=== PATIENT | male | born 1990 ===

== ENCOUNTER 2016-08-20 08:26 | Emergency (ER) | payer OTHER ==
--- NOTE | 2016-08-20 11:06 | DIAGNOSTIC IMAGING REPORT ---
PROCEDURE: ABDOMEN/PELVIS WITH CONTRAST CLINICAL INDICATION: RLQ ABDO PAIN, N/V TECHNIQUE: 100 ml of Isovue 300 were injected intravenously and axial images were obtained of the abdomen and pelvis with sagittal and coronal reformations. COMPARISON: 05/23/2016 FINDINGS: ABDOMEN: Moderate periportal edema and pericholecystic fluid. No free perihepatic fluid. The colon in the hepatic flexure and the transverse colon demonstrates decompression but mild wall thickening. The gastric antrum is decompressed and also demonstrates slight wall thickening. The bowel loops are otherwise normal. Clear lung bases. Normal sized heart. No hiatal hernia. The adrenal glands, kidneys, pancreas and spleen are normal. The abdominal aorta is normal in its course and caliber. No atherosclerosis. There are no suspicious calcifications , retroperitoneal adenopathy or masses. The upper bowel loops, and mesentery are normal. Intact anterior abdominal wall. No free fluid or inflammation. PELVIS: The appendix is surgically absent. The pelvic small bowel loops are normal. amount of stool in the colon and rectum. The prostate gland, seminal vesicles, urinary bladder, and pelvic vessels are normal. No adenopathy, free fluid, or pelvic mass. Intact osseous structures. IMPRESSION: 1. Nonspecific periportal edema and pericholecystic fluid, probably related to mild diffuse inflammation, infection (lymphatic dilatation), or increased fluid status. 2. Mild wall thickening of the proximal and transverse colon and questionably in the gastric antrum. There may be a gastroenteritis/enterocolitis present given other signs of inflammation and trace amount of free pelvic fluid. No focal inflammatory changes. 3. Post appendectomy. 4. Discussed with Dr. Terry in the emergency room. All CT scans at this facility use dose modulation, iterative reconstruction, and/or weight-based dosing when appropriate to reduce radiation dose to as low as reasonably achievable.
--- NOTE | 2016-08-20 11:23 | ED NURSING NOTES ---
Clinical Report - Nurses [facility] [address] [place] [address] 08/20/2016 8:26 Patient: NADIYA ECHEVERRIA TRIAGE Triage time 08:Aug 20 2016. Acuity: LEVEL 3. Chief Complaint: ABDOMINAL PAIN, NAUSEA and VOMITING. --08:37 Jairon Juarez R.N. 08:29 08/20/16. BP: 111/79. HR: 44. RR: 22. O2 saturation: 100% on room air. Temp: 98.3 F (oral). Pain level now: 11/30. --08:37 Jairon Juarez R.N. Weight: 68 kg stated. Height/Length: 64 inches Per Patient. BMI: 25.8. --08:28 Jairon Juarez R.N. Medications None. --08:33 Jairon Juarez R.N. Allergies No Known Drug Allergy. --08:33 Jairon Juarez R.N. History Arrived by EMS. Historian: patient. Onset. (This morning at 0200). ( Pt had an appendectomy 1 year ago and since then has had monthly episodes of severe abdominal pain with nausea and emesis. Pt was seen at [facility] this morning and EMS was called. Pt then brought to [place] ED for further treatment.). He has had nausea, vomiting and abdominal pain. No fever. Last oral intake by patient was dinner yesterday. Treatment GRAPHIC PRODUCTION ARTIST: Medications given- morphine IVP and ondanestron. PAST MEDICAL HX: Immunizations: up-to-date. SOCIAL HX: Light tobacco smoker. Occasional alcohol use. (last drink Wednesday or Wednesday). History of drug use: marijuana. (yesterday). No recent travel. No infectious disease exposure. No known contact with a sick individual. FALL RISK ASSESSMENT: Fall risk assessment completed. No fall risk identified. NUTRITIONAL RISK ASSESSMENT: The nutritional risk assessment revealed no deficiencies. FUNCTIONAL ASSESSMENT: Functional assessment: no impairments noted. LEARNING NEEDS ASSESSMENT: The learning needs assessment revealed no barriers. SKIN INTEGRITY ASSESSMENT: Skin integrity risk assessment completed. No skin integrity risk identified. --08:37 Jairon Juarez R.N. PROBLEMS: R hand spiral fracture (2004). Lap appy. Appendicitis. --08:32 Jairon Juarez R.N. Gastroenteritis. Abdominal Pain. --08:32 Jairon Juarez R.N. Interventions ID band on patient. To treatment room. --08:37 Jairon Juarez R.N. 08:30 08/20/2016 Site #1 started prior to arrival in doctor's office via IV in the right antecubital space with an 22g angiocath. Blood drawn: rainbow set. Labeled in the presence of the patient and sent to the lab. --08:30 Jairon Juarez R.N. PHYSICAL ASSESSMENT To room via stretcher. GENERAL / NEURO / PSYCH: Alert. Oriented X 4. Appears in pain and in distress. RESPIRATORY: Moderate respiratory distress. Breath sounds within normal limits. CVS: No abnormal heart sounds. Capillary refill less than 2 seconds. GI / : The patient has had nausea. Emesis noted. Has vomited once. Abdomen soft. Abdominal tenderness. Guarding present. Bowel sounds within normal limits. EXTREMITIES: No lower extremity edema. SKIN: Skin is warm. Skin is diaphoretic. --08:38 Jairon Juarez R.N. NURSING PROGRESS NOTES The plan of care for this patient has been created. Monitoring of patient in place. Blood samples drawn. Patient gowned. Head of bed elevated. Reassurance given. Two patient identifiers checked. Call light placed in reach. Side rails up x 2. Bed placed in lowest position. Patient ready for evaluation- ED physician notified. ( Pt vomited once upon admission. He was in distress, respirations are deep and rapid upon immediate admission. Pt is now resting quietly, breathing unlabored, vitals stable.). --08:39 Jairon Juarez R.N. 08:57 08/20/2016 Ondansetron (Ondansetron HCl) IVP 4 mg given. via site #1. Allergies verified and confirmed 5 rights. IV patency established. IV site checked: no pain, redness, or swelling. IV flushed thoroughly pre- and post-medication administration. IVP given by RN. --08:57 Jairon Juarez R.N. 08:57 08/20/2016 Started bag #1 1000 mL IV Fluids IV NS (Saline); bolus of 1000 mL over 1 hour(s) via site #1. Allergies verified and confirmed 5 rights. IV patency established. IV site checked: no pain, redness, or swelling. IV flushed thoroughly pre- and post-medication administration. Completed per protocol. --08:57 Jairon Juarez R.N. 09:25 08/20/2016 Morphine IVP 4 mg given. via site #1. Allergies verified, confirmed 5 rights and sedative warning given to the patient. IV patency established. IV site checked: no pain, redness, or swelling. IV flushed thoroughly pre- and post-medication administration. IVP given by RN. --09:26 Jairon Juarez R.N. ( Pt reporting pain 10, ordered Morphine given. Pt resting quietly, vitals stable, wctm.). --09:33 Jairon Juarez R.N. 09:31 08/20/16. BP: 115/75. HR: 45. RR: 20. O2 saturation: 97% on room air. Pain level now: 7. --09:33 Jairon Juarez R.N. 09:36 08/20/2016 Ondansetron IVP Response: no adverse reaction. --09:36 Jairon Juarez R.N. 10:07 08/20/2016 Morphine IVP Response: no adverse reaction pain is improving. Symptoms have improved the patient feels better. --10:07 Jairon Juarez R.N. 10:08 08/20/16. BP: 115/58. HR: 50. RR: 14. O2 saturation: 99% on room air. Vaughan-Paul pain scale: 2/10. --10:08 Jairon Juarez R.N. ( Pt is resting comfortably, fiancee at bedside, VSS, no current needs.). --10:09 Jairon Juarez R.N. 10:16 08/20/2016 IV Fluids IV NS Discontinued: bag #1 infused. Total amount infused: 1000 mL. --10:16 Jairon Juarez R.N. Patient transported to [place] by stretcher with tech. (10:22 Aug 20 2016). --10:22 Jairon Juarez R.N. 10:45 08/20/16. BP: 125/71. HR: 51. RR: 16. O2 saturation: 100% on room air. Pain level now: 11/30. --10:45 Jairon Juarez R.N. 10:47 08/20/2016 Morphine IVP 4 mg given. via site #1. Allergies verified, confirmed 5 rights and sedative warning given to the patient. IV patency established. IV site checked: no pain, redness, or swelling. IV flushed thoroughly pre- and post-medication administration. IVP given by RN. --10:47 Jairon Juarez R.N. Patient returned from CT by stretcher with tech. (0240). ( Pt c/o pain post CT. Ordered Morphine given. Pt resting quietly, vitals stable, fiancee at bedside, no further needs.). --10:54 Jairon Juarez R.N. 11:11 08/20/16. BP: 101/59. HR: 49. RR: 16. O2 saturation: 100% on room air. Vaughan-Paul pain scale: 07/03. --11:12 Jairon Juarez R.N. ( Pt is apparently asleep, resting quietly, no apparent distress.). --11:12 Jairon Juarez R.N. 11:17 08/20/2016 GI COCKTAIL WHITE (Simethicone) PO Oral Suspension 50 mL given. Allergies verified and confirmed 5 rights. --11:17 Jairon Juarez R.N. 11:45 08/20/2016 GI COCKTAIL WHITE PO Response: no adverse reaction symptoms have improved. --11:45 Jairon Juarez R.N. DISPOSITION / DISCHARGE 11:39 08/20/16. BP: 113/71. HR: 55. RR: 16. O2 saturation: 100% on room air. Temp: 98.3 F. Pain level now: 10/31. --11:40 Jairon Juarez R.N. 11:45 08/20/2016 Site #1 removed upon discharge. Bandage applied. --11:45 Jairon Juarez R.N. Condition at departure: improved and stable. No learning barriers present. Discharge instructions provided and reviewed with ward secretary and the patient. Reviewed warnings (Pt not to drive today d/t narcotics given in ED today.). Reviewed medication(s) side effects, precautions, dosing and course information. Prescription(s) given to the patient. Reviewed referral to a primary care physician (Pt given instructions to get a referral to a GI specialist). Work note given. Patient and ward secretary verbalized understanding. Written instructions provided in Yi. The patient was discharged by the physician. He was discharged home and accompanied by ward secretary. He left the Emergency Department ambulatory and via private vehicle. Radiologic Technology Instructor driving. ( Pt dc/d in stable condition, pain and nausea are improved, ambulatory, S/O accompanying Pt.). --11:47 Jairon Juarez R.N. Departure time: 11:47 Aug 20 2016. --11:47 Jairon Juarez R.N. Locked/Released at 08/20/2016 11:48 by Jairon Juarez R.N.
--- NOTE | 2016-08-20 11:23 | ED CLINICAL REPORT ---
Clinical Report - Physicians/Mid Levels [facility] [address] [place] [address] 08/20/2016 8:26 Patient: NADIYA ECHEVERRIA Time Seen: 0900. Arrived- By ambulance. Historian- patient. HISTORY OF PRESENT ILLNESS Chief Complaint: ABDOMINAL PAIN. This started this morning and is still present (staying the same). It was abrupt in onset and has been constant but is not gone now. At its maximum, severity described as severe. When seen in the E.D., severity described as severe. Modifying factors- (does not know what makes it better or worse). It is described as sharp and cramping. No radiation. It is described as located in the right lower quadrant. The patient has had nausea, loss of appetite and vomiting. No diarrhea. No additional abdominal pain. No recent travel. Similar symptoms previously: Many times. Recent medical care: Not recently seen/assessed. REVIEW OF SYSTEMS No constipation, black stools, hematemesis, difficulty with urination or pain with urination. No bloody stools or skin rash. All systems otherwise negative, except as recorded above. PAST HISTORY See nurses notes. Medications: None. Allergies: No Known Drug Allergy. SOCIAL HISTORY Smoker- current status unknown. Alcohol use. History of drug use: marijuana. No recent travel. Is a local resident. FAMILY HISTORY Negative. ADDITIONAL NOTES The nursing notes have been reviewed. PHYSICAL EXAM Vital Signs: 08/20/2016 08:29 BP: 111/79. HR: 44. RR: 22. O2 saturation: 100%. Temp: 98.3 F. Pain level now: 7/10. Blood pressure normal. Oxygen saturation normal. Appearance: Alert. Oriented X3. Patient in mild distress. (actively vomitingand retching. vomitus is nonbloody nonbilious and white clear mucousy.). Eyes: Pupils equal, round and reactive to light. Eyes normal inspection. ENT: Ears normal. Nose normal. Pharynx normal. Neck: Normal inspection. Neck supple. CVS: Normal heart rate and rhythm. Heart sounds normal. Pulses normal. Respiratory: No respiratory distress. Breath sounds normal. Chest nontender. Abdomen: Soft and nontender. Bowel sounds normal. No mass. Back: Normal inspection. Skin: Skin warm and dry. Normal skin color. No rash. Extremities: Extremities exhibit normal ROM. No lower extremity edema. LABS, X-RAYS, AND EKG Abdominal CT: PROCEDURE: ABDOMEN/PELVIS WITH CONTRAST CLINICAL INDICATION: RLQ ABDO PAIN, N/V TECHNIQUE: 100 ml of Isovue 300 were injected intravenously and axial images were obtained of the abdomen and pelvis with sagittal and coronal reformations. COMPARISON: 05/23/2016 FINDINGS: ABDOMEN: Moderate periportal edema and pericholecystic fluid. No free perihepatic fluid. The colon in the hepatic flexure and the transverse colon demonstrates decompression but mild wall thickening. The gastric antrum is decompressed and also demonstrates slight wall thickening. The bowel loops are otherwise normal. Clear lung bases. Normal sized heart. No hiatal hernia. The adrenal glands, kidneys, pancreas and spleen are normal. The abdominal aorta is normal in its course and caliber. No atherosclerosis. There are no suspicious calcifications, retroperitoneal adenopathy or masses. The upper bowel loops, and mesentery are normal. Intact anterior abdominal wall. No free fluid or inflammation. PELVIS: The appendix is surgically absent. The pelvic small bowel loops are normal. amount of stool in the colon and rectum. The prostate gland, seminal vesicles, urinary bladder, and pelvic vessels are normal. No adenopathy, free fluid, or pelvic mass. Intact osseous structures. IMPRESSION: 1. Nonspecific periportal edema and pericholecystic fluid, probably related to mild diffuse inflammation, infection (lymphatic dilatation), or increased fluid status. 2. Mild wall thickening of the proximal and transverse colon and questionably in the gastric antrum. There may be a gastroenteritis/enterocolitis present given other signs of inflammation and trace amount of free pelvic fluid. No focal inflammatory changes. 3. Post appendectomy. Study type: abdomen and pelvis. Abdominal CT performed with contrast. The study was independently viewed by me and interpreted by the radiologist. The study was discussed with the radiologist (via pacs). Laboratory Tests: UA-Culture if indicated: (YANCY: 08/20/2016 08:55) ( MsgRcvd 08/20/2016 09:41) Final results Test Result Flag Units (Reference) URINE COLOR YELLOW URINE APPEARANCE CLEAR URINE GLUCOSE NEGATIVE (NEGATIVE) URINE BILIRUBIN NEGATIVE (NEGATIVE) URINE KETONE 1+ (NEGATIVE) URINE SPECIFIC GRAVITY 1.020 (1.010-1.030) URINE PH 7.0 (5.0-8.0) URINE PROTEIN NEGATIVE (NEGATIVE) URINE UROBILINOGEN 0.2 EU/dL (0.2-1.0) URINE NITRITE NEGATIVE (NEGATIVE) URINE BLOOD TRACE-LYSED (NEGATIVE) URINE LEUK ESTERASE NEGATIVE (NEGATIVE) URINE RBC 0-1 rbc/hpf (0-1) URINE WBC NONE SEEN wbc/hpf (0-1) URINE EPITHELIAL CELLS 0-1 EPI/hpf (0-5) URINE BACTERIA TRACE (<1+) (NONE SEEN) URINE COMMENT CULT NOT INDICATED TRACE AMORPHOUSURINE CULTURES ARE SET-UP BASED ON THE FOLLOWING CRITERIA:POSITIVE NITRITEPOSITIVE LEUKOCYTE ESTERASEGREATER THAN 10 WHITE BLOOD CELLSMODERATE (2+) OR GREATER BACTERIA CBC w Diff: (YANCY: 08/20/2016 08:30) ( [facility] 08[facility]53) Final results Test Result Flag Units (Reference) WHITE BLOOD COUNT 10.9 K/uL (4.5-11.5) RED BLOOD COUNT 3.97 L M/uL (4.50-5.90) HEMOGLOBIN 13.3 L gm/dL (13.5-17.5) HEMATOCRIT 39.2 L % (41.0-53.0) MEAN CELL VOLUME 99 fL (80-100) MEAN CORPUSCULAR HGB 34 pg (26-34) MEAN CORPUSCULAR HGB CONC 34 g/dL (31-37) RED CELL DISTRIBUTION WIDTH 12.8 % (11.6-14.8) PLATELET COUNT 226 K/uL (150-400) NEUTROPHIL % 79.4 H % (50-75) LYMPH % 15.1 L % (25-40) MONO % 3.9 % (3-14) EOSINOPHIL % 1.2 % (0-4) BASOPHIL % 0.4 % (0-2) Urine Drug Screen: (YANCY: 08/20/2016 08:55) ( [facility] 08/20/2016 09:40) Final results Test Result Flag Units (Reference) AMPHETAMINE/METHAMPHETAMINE NEGATIVE (NEGATIVE) BARBITURATE NEGATIVE (NEGATIVE) BENZODIAZEPINE NEGATIVE (NEGATIVE) CANNABINOID POSITIVE H (NEGATIVE) COCAINE NEGATIVE (NEGATIVE) ECSTASY NEGATIVE (NEGATIVE) METHADONE NEGATIVE (NEGATIVE) OPIATE POSITIVE H (NEGATIVE) The urine drug screen is a qualitative screening test fordrug overdose and abuse. All screen results should beconsidered as presumptive.Drugs screened for are as follows:BenzodiazepinesCocaineAmphetamines/MetamphetaminesTHC (Tetrahydrocannabinol)OpiatesBarbituratesEcstasyMethadonePositive results are unconfirmed. For confirmation, notifythe lab for the specimen to be sent to the reference lab.All confirmations must be performed by a differentmethodology.The ingestion of natural herbal and plant productscontaining Ephedra/Ephedra metabolites can produce in urineone or more substances capable of cross reacting withamphetamine/methamphetamine immunoassays. These testsprovide a preliminary result only. A more specificalternative chemical method must be used to obtain aconfirmed analytical result. CMP: (YANCY: 08/20/2016 08:30) ( MsgRcvd 08/20/2016 09:23) Final results Test Result Flag Units (Reference) GLUCOSE 120 H mg/dL (70-110) BUN 15 mg/dL (7-18) CREATININE 1.1 mg/dL (0.6-1.3) Estimated GFR >60 mL/min Estimated GFR- >60 mL/min Note: Persistent reduction over 3 months in eGFR<60 mL/min/1.73 m2 defines CKD. Patients with eGFR values>=60 mL/min/1.73 m2 may also have CKD if evidence ofpersistent proteinuria. Additional information may be foundat www.kidney.org. SODIUM 140 mmol/L (136-145) POTASSIUM 3.5 mmol/L (3.5-5.1) CHLORIDE 105 mmol/L (98-107) CARBON DIOXIDE 22 mmol/L (21-32) CALCIUM 9.6 mg/dL (8.5-10.1) TOTAL PROTEIN 7.7 g/dL (6.4-8.2) ALBUMIN 4.3 g/dL (3.3-5.0) BILIRUBIN, TOTAL 0.6 mg/dL (0.0-1.0) ALKALINE PHOSPHATASE 55 U/L (46-116) AST (SGOT) 30 U/L (15-37) ALT (SGPT) 30 U/L (12-78) LIPASE 56 L U/L (73-393) . PROGRESS AND PROCEDURES Course of Care: The patient is a pleasant 26-year-old male with past medical history significant for substance abuse of marijuana presenting for evaluation of abdominal pain. At this time differential diagnosis includes bowel obstruction, diverticulitis, urine tract infection,renal colic. Patient reports having history of appendectomy. Patient agreeable to treatment plan. Nausea medication as well as pain medications with fluids have been ordered. the patient's workup was remarkable for the findings above. No acute abnormalities notedon patient'sCT scan requiring immediate surgery or admission to hospital. Had discussion with patient in regards tonausea and vomiting associated with marijuana. Also explained to patient his findings on CT scan. Laboratory studies unremarkable. No signs of urinary tract infection. Hemoglobin and hematocrit are noted to be normal. Patient's symptoms here in the emergency department had significantly improved. Medications for outpatient management or provided. Head discussion with patient in regards his workup here in the emergency department including diagnosis, home care, follow-up, and return precautions. All questions have been answered. The patient expressed understanding of these instructions and was agreeable to them. Prior to patient's discharge from the emergency department he was reexamined and found to be resting in bed and in no acute distress. Repeat abdominal exam continues to be benign. Patient is nontoxic and in no acute distress. Disposition: Discharged. Condition: good. CLINICAL IMPRESSION Acute right lower quadrant abdominal pain. 08/20/2016 11:11 BP: 101/59. HR: 49. RR: 16. O2 saturation: 100%. Vaughan-Paul pain scale: 2/10. Moderate nausea with vomiting (acute). Blood pressure normal. Oxygen saturation normal. INSTRUCTIONS Warnings: GENERAL WARNINGS: Return or contact your physician immediately if your condition worsens or changes unexpectedly, if not improving as expected, or if other problems arise. SPECIFICALLY, return if you develop pain, fever, vomiting, the inability to keep fluids down, blood in vomitus, blood in diarrhea, fainting, lightheadedness or vaginal bleeding. Your Current Medications: CONTINUE TAKING THE FOLLOWING MEDICATIONS: None*. Prescription Medications: Zofran (orally disintegrating tablets) 4 mg: take 1 orally every 8 hours as needed for nausea and vomiting. Dispense ten (10). No refill. Substitution is permissible. Pepcid 20 mg: take 1 orally every 12 hours for 10 days as needed for indigestion, upset stomach or heartburn. Dispense twenty (20). No refills. Substitution is permissible. Follow-up: Return to the emergency department as needed. Follow up with a tobacco stripper hand contact your primary care doctor about a referral to a GI specialist in one week. Reason for referral: recheck today's concerns. Summary of care provided to patient via paper. Follow up with your doctor in three days. Reason for referral: recheck today's concerns. Summary of care provided to patient via paper. Screening today revealed the patient's blood pressure to be in the normal range. The patient should follow up with a primary care provider for blood pressure management. Understanding of the discharge instructions verbalized by patient. (Electronically signed by Antony Terry Dr. 08/23/2016 19:07)
--- NOTE | 2016-08-20 11:23 | ED NURSING NOTES ---
Clinical Report - Nurses [facility] [address] [place] [address] 08/20/2016 8:26 Patient: NADIYA ECHEVERRIA TRIAGE Triage time 08:Aug 20 2016. Acuity: LEVEL 3. Chief Complaint: ABDOMINAL PAIN, NAUSEA and VOMITING. --08:37 Jairon Juarez R.N. 08:29 08/20/16. BP: 111/79. HR: 44. RR: 22. O2 saturation: 100% on room air. Temp: 98.3 F (oral). Pain level now: 11/30. --08:37 Jairon Juarez R.N. Weight: 68 kg stated. Height/Length: 64 inches Per Patient. BMI: 25.8. --08:28 Jairon Juarez R.N. Medications None. --08:33 Jairon Juarez R.N. Allergies No Known Drug Allergy. --08:33 Jairon Juarez R.N. History Arrived by EMS. Historian: patient. Onset. (This morning at 0200). ( Pt had an appendectomy 1 year ago and since then has had monthly episodes of severe abdominal pain with nausea and emesis. Pt was seen at [facility] this morning and EMS was called. Pt then brought to [facility] ED for further treatment.). He has had nausea, vomiting and abdominal pain. No fever. Last oral intake by patient was dinner yesterday. Treatment ASSEMBLY HAND: Medications given- morphine IVP and ondanestron. PAST MEDICAL HX: Immunizations: up-to-date. SOCIAL HX: Light tobacco smoker. Occasional alcohol use. (last drink Wednesday or Wednesday). History of drug use: marijuana. (yesterday). No recent travel. No infectious disease exposure. No known contact with a sick individual. FALL RISK ASSESSMENT: Fall risk assessment completed. No fall risk identified. NUTRITIONAL RISK ASSESSMENT: The nutritional risk assessment revealed no deficiencies. FUNCTIONAL ASSESSMENT: Functional assessment: no impairments noted. LEARNING NEEDS ASSESSMENT: The learning needs assessment revealed no barriers. SKIN INTEGRITY ASSESSMENT: Skin integrity risk assessment completed. No skin integrity risk identified. --08:37 Jairon Juarez R.N. PROBLEMS: R hand spiral fracture (2004). Lap appy. Appendicitis. --08:32 Jairon Juarez R.N. Gastroenteritis. Abdominal Pain. --08:32 Jairon Juarez R.N. Interventions ID band on patient. To treatment room. --08:37 Jairon Juarez R.N. 08:30 08/20/2016 Site #1 started prior to arrival in doctor's office via IV in the right antecubital space with an 22g angiocath. Blood drawn: rainbow set. Labeled in the presence of the patient and sent to the lab. --08:30 Jairon Juarez R.N. PHYSICAL ASSESSMENT To room via stretcher. GENERAL / NEURO / PSYCH: Alert. Oriented X 4. Appears in pain and in distress. RESPIRATORY: Moderate respiratory distress. Breath sounds within normal limits. CVS: No abnormal heart sounds. Capillary refill less than 2 seconds. GI / : The patient has had nausea. Emesis noted. Has vomited once. Abdomen soft. Abdominal tenderness. Guarding present. Bowel sounds within normal limits. EXTREMITIES: No lower extremity edema. SKIN: Skin is warm. Skin is diaphoretic. --08:38 Jairon Juarez R.N. NURSING PROGRESS NOTES The plan of care for this patient has been created. Monitoring of patient in place. Blood samples drawn. Patient gowned. Head of bed elevated. Reassurance given. Two patient identifiers checked. Call light placed in reach. Side rails up x 2. Bed placed in lowest position. Patient ready for evaluation- ED physician notified. ( Pt vomited once upon admission. He was in distress, respirations are deep and rapid upon immediate admission. Pt is now resting quietly, breathing unlabored, vitals stable.). --08:39 Jairon Juarez R.N. 08:57 08/20/2016 Ondansetron (Ondansetron HCl) IVP 4 mg given. via site #1. Allergies verified and confirmed 5 rights. IV patency established. IV site checked: no pain, redness, or swelling. IV flushed thoroughly pre- and post-medication administration. IVP given by RN. --08:57 Jairon Juarez R.N. 08:57 08/20/2016 Started bag #1 1000 mL IV Fluids IV NS (Saline); bolus of 1000 mL over 1 hour(s) via site #1. Allergies verified and confirmed 5 rights. IV patency established. IV site checked: no pain, redness, or swelling. IV flushed thoroughly pre- and post-medication administration. Completed per protocol. --08:57 Jairon Juarez R.N. 09:25 08/20/2016 Morphine IVP 4 mg given. via site #1. Allergies verified, confirmed 5 rights and sedative warning given to the patient. IV patency established. IV site checked: no pain, redness, or swelling. IV flushed thoroughly pre- and post-medication administration. IVP given by RN. --09:26 Jairon Juarez R.N. ( Pt reporting pain 10, ordered Morphine given. Pt resting quietly, vitals stable, wctm.). --09:33 Jairon Juarez R.N. 09:31 08/20/16. BP: 115/75. HR: 45. RR: 20. O2 saturation: 97% on room air. Pain level now: 7. --09:33 Jairon Juarez R.N. 09:36 08/20/2016 Ondansetron IVP Response: no adverse reaction. --09:36 Jairon Juarez R.N. 10:07 08/20/2016 Morphine IVP Response: no adverse reaction pain is improving. Symptoms have improved the patient feels better. --10:07 Jairon Juarez R.N. 10:08 08/20/16. BP: 115/58. HR: 50. RR: 14. O2 saturation: 99% on room air. Vaughan-Paul pain scale: 2/10. --10:08 Jairon Juarez R.N. ( Pt is resting comfortably, fiancee at bedside, VSS, no current needs.). --10:09 Jairon Juarez R.N. 10:16 08/20/2016 IV Fluids IV NS Discontinued: bag #1 infused. Total amount infused: 1000 mL. --10:16 Jairon Juarez R.N. Patient transported to MA by stretcher with tech. (10:22 Aug 20 2016). --10:22 Jairon Juarez R.N. 10:45 08/20/16. BP: 125/71. HR: 51. RR: 16. O2 saturation: 100% on room air. Pain level now: 11/30. --10:45 Jairon Juarez R.N. 10:47 08/20/2016 Morphine IVP 4 mg given. via site #1. Allergies verified, confirmed 5 rights and sedative warning given to the patient. IV patency established. IV site checked: no pain, redness, or swelling. IV flushed thoroughly pre- and post-medication administration. IVP given by RN. --10:47 Jairon Juarez R.N. Patient returned from CT by stretcher with tech. ([id number]). ( Pt c/o pain post CT. Ordered Morphine given. Pt resting quietly, vitals stable, fiancee at bedside, no further needs.). --10:54 Jairon Juarez R.N. 11:11 08/20/16. BP: 101/59. HR: 49. RR: 16. O2 saturation: 100% on room air. Vaughan-Paul pain scale: 07/03. --11:12 Jairon Juarez R.N. ( Pt is apparently asleep, resting quietly, no apparent distress.). --11:12 Jairon Juarez R.N. 11:17 08/20/2016 GI COCKTAIL WHITE (Simethicone) PO Oral Suspension 50 mL given. Allergies verified and confirmed 5 rights. --11:17 Jairon Juarez R.N. 11:45 08/20/2016 GI COCKTAIL WHITE PO Response: no adverse reaction symptoms have improved. --11:45 Jairon Juarez R.N. DISPOSITION / DISCHARGE 11:39 08/20/16. BP: 113/71. HR: 55. RR: 16. O2 saturation: 100% on room air. Temp: 98.3 F. Pain level now: 10/31. --11:40 Jairon Juarez R.N. 11:45 08/20/2016 Site #1 removed upon discharge. Bandage applied. --11:45 Jairon Juarez R.N. Condition at departure: improved and stable. No learning barriers present. Discharge instructions provided and reviewed with leadership program associate and the patient. Reviewed warnings (Pt not to drive today d/t narcotics given in ED today.). Reviewed medication(s) side effects, precautions, dosing and course information. Prescription(s) given to the patient. Reviewed referral to a primary care physician (Pt given instructions to get a referral to a GI specialist). Work note given. Patient and leadership program associate verbalized understanding. Written instructions provided in Occitan. The patient was discharged by the physician. He was discharged home and accompanied by leadership program associate. He left the Emergency Department ambulatory and via private vehicle. Protective Signal Operator driving. ( Pt dc/d in stable condition, pain and nausea are improved, ambulatory, S/O accompanying Pt.). --11:47 Jairon Juarez R.N. Departure time: 11:47 Aug 20 2016. --11:47 Jairon Juarez R.N. Locked/Released at 08/20/2016 11:48 by Jairon Juarez R.N.
--- NOTE | 2016-08-20 11:24 | ED ORDER SUMMARY ---
..... Patient: NADIYA ECHEVERRIA OrderSheet [facility] VisitID: [id number] [place] [address] 26y, M Registration Date/Time: 08/20/2016 ORDER SHEET Weight: 68.0 kg (stated) Allergies: No Known Drug Allergy GENERAL ORDERS: Pulse oximeter (Continuous) (08:40 08/20/2016 MCook R.N. per protocol) (8:41 MCook R.N.) UA-Culture if indicated Urgent (08:41 08/20/2016 MCook R.N. per protocol) (Ack 8:41 LNations ER Tech1) (8:57 MCook R.N.) CBC w Diff Urgent (08:41 08/20/2016 MCook R.N. per protocol) (8:41 MCook R.N.) CMP Urgent (08:41 08/20/2016 MCook R.N. per protocol) (8:41 MCook R.N.) Lipase Urgent (09:00 08/20/2016 Keshawn Cobian) (Ack 9:04 LNations ER Tech1) (9:04 JSanders R.N.) Urine Drug Screen Urgent (09:00 08/20/2016 Keshawn Cobian) (Ack 9:04 LNations ER Tech1) (9:04 JSanders R.N.) CT Abd/Pel w Cont (No) (N/A) Urgent (09:53 08/20/2016 Keshawn Cobian) (Ack 9:54 LNations ER Tech1) (10:45 MCook R.N.) MEDICATION ORDERS: GI Cocktail WHITE PO 30 mL (NOW) (11:05 08/20/2016 Keshawn Cobian) (11:17 MCook R.N.) IV FLUIDS: IV Saline Lock (08:40 08/20/2016 MCook R.N. per protocol) (8:56 MCook R.N.) IV NS with Normal Saline 1 Liter: initial bolus none -, then 1000 mL/hr for X1 (NOW); Routine (08:55 08/20/2016 MCook R.N. per protocol) (8:57 MCook R.N.) Ondansetron IV 4 mg (NOW) (08:56 08/20/2016 Familia Brown.N. per protocol) (8:57 Familia R.N.) Morphine IV 4 mg (once now. may repeat in 15 minutes for total of 8 mg for pain > 5/10) (09:22 08/20/2016 Keshawn Cobian) (9:26 Familia R.N.) ORDER SHEET NOTES: [Electronically signed by Jairon Juarez R.N. (11:48 08/20/2016)] [Electronically signed by Antony Terry Dr. (19:07 08/23/2016)] [Electronically locked/signed by Jairon Juarez R.N. (11:48 08/20/2016)]
--- NOTE | 2016-08-20 11:24 | ED ORDER SUMMARY ---
..... Patient: NADIYA ECHEVERRIA OrderSheet [facility] VisitID: [id number] [place] [address] 26y, M Registration Date/Time: 08/20/2016 ORDER SHEET Weight: 68.0 kg (stated) Allergies: No Known Drug Allergy GENERAL ORDERS: Pulse oximeter (Continuous) (08:40 08/20/2016 MCook R.N. per protocol) (8:41 MCook R.N.) UA-Culture if indicated Urgent (08:41 08/20/2016 MCook R.N. per protocol) (Ack 8:41 LNations ER Tech1) (8:57 MCook R.N.) CBC w Diff Urgent (08:41 08/20/2016 MCook R.N. per protocol) (8:41 MCook R.N.) CMP Urgent (08:41 08/20/2016 MCook R.N. per protocol) (8:41 MCook R.N.) Lipase Urgent (09:00 08/20/2016 Keshawn Cobian) (Ack 9:04 LNations ER Tech1) (9:04 JSanders R.N.) Urine Drug Screen Urgent (09:00 08/20/2016 Keshawn Cobian) (Ack 9:04 LNations ER Tech1) (9:04 JSanders R.N.) CT Abd/Pel w Cont (No) (N/A) Urgent (09:53 08/20/2016 Keshawn Cobian) (Ack 9:54 LNations ER Tech1) (10:45 MCook R.N.) MEDICATION ORDERS: GI Cocktail WHITE PO 30 mL (NOW) (11:05 08/20/2016 Keshawn Cobian) (11:17 MCook R.N.) IV FLUIDS: IV Saline Lock (08:40 08/20/2016 MCook R.N. per protocol) (8:56 MCook R.N.) IV NS with Normal Saline 1 Liter: initial bolus none -, then 1000 mL/hr for X1 (NOW); Routine (08:55 08/20/2016 MCook R.N. per protocol) (8:57 MCook R.N.) Ondansetron IV 4 mg (NOW) (08:56 08/20/2016 Familia Brown.N. per protocol) (8:57 Familia R.N.) Morphine IV 4 mg (once now. may repeat in 15 minutes for total of 8 mg for pain > 5/10) (09:22 08/20/2016 Keshawn Cobian) (9:26 Familia R.N.) ORDER SHEET NOTES: [Electronically signed by Jairon Juarez R.N. (11:48 08/20/2016)] [Electronically signed by Antony Terry Dr. (19:07 08/23/2016)] [Electronically locked/signed by Jairon Juarez R.N. (11:48 08/20/2016)]
--- NOTE | 2016-08-23 19:07 | ED DISCHARGE INSTRUCTIONS ---
Patient: NADIYA ECHEVERRIA General Instructions [facility] VisitID: [id number] [place] [address] 26y, M Registration Date/Time: 08/20/2016 Acute right lower quadrant abdominal pain. 08/20/2016 11:11 BP: 101/59. HR: 49. RR: 16. O2 saturation: 100%. Vaughan-Paul pain scale: 2/10. Moderate nausea with vomiting (acute). Blood pressure normal. Oxygen saturation normal. INSTRUCTIONS Warnings: GENERAL WARNINGS: Return or contact your physician immediately if your condition worsens or changes unexpectedly, if not improving as expected, or if other problems arise. SPECIFICALLY, return if you develop pain, fever, vomiting, the inability to keep fluids down, blood in vomitus, blood in diarrhea, fainting, lightheadedness or vaginal bleeding. Your Current Medications: CONTINUE TAKING THE FOLLOWING MEDICATIONS: None*. Prescription Medications: Zofran (orally disintegrating tablets) 4 mg: take 1 orally every 8 hours as needed for nausea and vomiting. Dispense ten (10). No refill. Substitution is permissible. Pepcid 20 mg: take 1 orally every 12 hours for 10 days as needed for indigestion, upset stomach or heartburn. Dispense twenty (20). No refills. Substitution is permissible. Follow-up: Return to the emergency department as needed. Follow up with a seafood process worker contact your primary care doctor about a referral to a GI specialist in one week. Reason for referral: recheck today's concerns. Summary of care provided to patient via paper. Follow up with your doctor in three days. Reason for referral: recheck today's concerns. Summary of care provided to patient via paper. Screening today revealed the patient's blood pressure to be in the normal range. The patient should follow up with a primary care provider for blood pressure management. Understanding of the discharge instructions verbalized by patient. ADDITIONAL INFORMATION Abdominal Pain,Uncertain Cause [Male] Based on your visit today, the exact cause of your abdominalpain is not clear. Your exam and tests do not indicate a dangerous cause at this time. However, the signs of a serious problem may take more time to appear. Although your evaluation was reassuring today, sometimes early in the course of many conditions, exam and lab tests can appear normal. Therefore, it is important for you to watch for any new symptoms or worsening of your condition. Causes It may not be obvious what caused your symptoms. Pay attention to things that do seem to make your symptoms worse or better and discuss this with your doctor when you follow up. Diagnosis The evaluation of abdominal pain in the emergency department may onlyrequire an exam by the doctor or it may include blood, urine or imaging studies, depending on many factors. Sometimes exams and tests can identify a cause but in many cases, a clear cause is not found. Further testing at follow up visits may help to suggest a clear diagnosis. Home Care Rest as much as possible until your next exam. Try to avoid any medications (unless otherwise directed by your doctor), foods, activities, or other factors that you may have contributed to your symptoms. Try to eat foods that you know that you have tolerated well in the past. Certain diets may be recommended for some conditions that cause abdominal pain. However, since the cause of your symptoms may not be clear, discuss your diet more with your primary care provider or specialist for further recommendations. Eating several small meals per day as opposed to 2 or 3 larger meals may help. Monitor closely for anything that may make your symptoms worse or better. Pay close attention to symptoms below that may indicate worsening of your condition. Follow Up and Precautions See your doctoras instructed or sooneror if your symptoms are not improving.In some cases, you may need more testing. When to Seek Medical Attention Contact your doctor or see medical attention ifany of the following occur: Pain is becoming worse You are unable to take your medications due to excessive vomiting Swelling of the abdomen Fever of 100.4F (38C) or higher, or as directed by your health care provider Blood in vomit or bowel movements (dark red or black color) Jaundice (yellow color of eyes and skin) New onset of weakness, dizziness or fainting New onset of chest, arm, back, neck or jaw pain Ondansetron Oral disintegrating tablet What is this medicine? ONDANSETRON (on PÉREZ se gamaliel) is used to treat nausea and vomiting caused by chemotherapy. It is also used to prevent or treat nausea and vomiting after surgery. How should I use this medicine? These tablets are made to dissolve in the mouth. Do not try to push the tablet through the foil backing. With dry hands, peel away the foil backing and gently remove the tablet. Place the tablet in the mouth and allow it to dissolve, then swallow. While you may take these tablets with water, it is not necessary to do so. Talk to your steel post installer supervisor regarding the use of this medicine in children. Special care may be needed. What side effects may I notice from receiving this medicine? Side effects that you should report to your doctor or health wound care specialist as soon as possible: allergic reactions like skin rash, itching or hives, swelling of the face, lips, or tongue breathing problems dizziness fast or irregular heartbeat feeling faint or lightheaded, falls fever and chills swelling of the hands and feet tightness in the chest Side effects that usually do not require medical attention (report to your doctor or health wound care specialist if they continue or are bothersome): constipation or diarrhea headache What may interact with this medicine? Do not take this medicine with any of the following medications: -apomorphine -cisapride -dofetilide -dronedarone -pimozide -thioridazine -ziprasidone This medicine may also interact with the following medications: -carbamazepine -phenytoin -rifampicin -tramadol -other medicines that prolong the QT interval (cause an abnormal heart rhythm) What if I miss a dose? If you miss a dose, take it as soon as you can. If it is almost time for your next dose, take only that dose. Do not take double or extra doses. Where should I keep my medicine? Keep out of the reach of children. Store between 2 and 30 degrees C (36 and 86 degrees F). Throw away any unused medicine after the expiration date. What should I tell my health care provider before I take this medicine? They need to know if you have any of these conditions: heart disease history of irregular heartbeat liver disease low levels of magnesium or potassium in the blood an unusual or allergic reaction to ondansetron, granisetron, other medicines, foods, dyes, or preservatives or trying to get breast-feeding What should I watch for while using this medicine? Check with your doctor or health wound care specialist as soon as you can if you have any sign of an allergic reaction. Famotidine Oral tablet What is this medicine? FAMOTIDINE (fa MARCIAL becker) is a type of antihistamine that blocks the release of stomach acid. It is used to treat stomach or intestinal ulcers. It can also relieve heartburn from acid reflux. How should I use this medicine? Take this medicine by mouth with a glass of water. Follow the directions on the prescription label. If you only take this medicine once a day, take it at bedtime. Take your doses at regular intervals. Do not take your medicine more often than directed. Talk to your steel post installer supervisor regarding the use of this medicine in children. Special care may be needed. What side effects may I notice from receiving this medicine? Side effects that you should report to your doctor or health wound care specialist as soon as possible: agitation, nervousness confusion hallucinations skin rash, itching Side effects that usually do not require medical attention (report to your doctor or health wound care specialist if they continue or are bothersome): constipation diarrhea dizziness headache What may interact with this medicine? delavirdine itraconazole ketoconazole What if I miss a dose? If you miss a dose, take it as soon as you can. If it is almost time for your next dose, take only that dose. Do not take double or extra doses. Where should I keep my medicine? Keep out of the reach of children. Store at room temperature between 15 and 30 degrees C (59 and 86 degrees F). Do not freeze. Throw away any unused medicine after the expiration date. What should I tell my health care provider before I take this medicine? They need to know if you have any of these conditions: kidney or liver disease trouble swallowing an unusual or allergic reaction to famotidine, other medicines, foods, dyes, or preservatives or trying to get breast-feeding What should I watch for while using this medicine? Tell your doctor or health wound care specialist if your condition does not start to get better or if it gets worse. Finish the full course of tablets prescribed, even if you feel better. Do not take with aspirin, ibuprofen or other antiinflammatory medicines. These can make your condition worse. Do not smoke cigarettes or drink alcohol. These cause irritation in your stomach and can increase the time it will take for ulcers to heal. If you get black, tarry stools or vomit up what looks like coffee grounds, call your doctor or health wound care specialist at once. You may have a bleeding ulcer. You have been given the following additional information: Abdominal Pain, Unknown Cause, (Male) Ondansetron Oral disintegrating tablet Famotidine Oral tablet (Electronically signed by Antony Terry Dr. 08/23/2016 19:07)
--- NOTE | 2016-08-23 19:07 | ED DISCHARGE INSTRUCTIONS ---
Patient: NADIYA ECHEVERRIA General Instructions [facility] VisitID: [id number] [place] [address] 26y, M Registration Date/Time: 08/20/2016 Acute right lower quadrant abdominal pain. 08/20/2016 11:11 BP: 101/59. HR: 49. RR: 16. O2 saturation: 100%. Vaughan-Paul pain scale: 2/10. Moderate nausea with vomiting (acute). Blood pressure normal. Oxygen saturation normal. INSTRUCTIONS Warnings: GENERAL WARNINGS: Return or contact your physician immediately if your condition worsens or changes unexpectedly, if not improving as expected, or if other problems arise. SPECIFICALLY, return if you develop pain, fever, vomiting, the inability to keep fluids down, blood in vomitus, blood in diarrhea, fainting, lightheadedness or vaginal bleeding. Your Current Medications: CONTINUE TAKING THE FOLLOWING MEDICATIONS: None*. Prescription Medications: Zofran (orally disintegrating tablets) 4 mg: take 1 orally every 8 hours as needed for nausea and vomiting. Dispense ten (10). No refill. Substitution is permissible. Pepcid 20 mg: take 1 orally every 12 hours for 10 days as needed for indigestion, upset stomach or heartburn. Dispense twenty (20). No refills. Substitution is permissible. Follow-up: Return to the emergency department as needed. Follow up with a turner and former automatic contact your primary care doctor about a referral to a GI specialist in one week. Reason for referral: recheck today's concerns. Summary of care provided to patient via paper. Follow up with your doctor in three days. Reason for referral: recheck today's concerns. Summary of care provided to patient via paper. Screening today revealed the patient's blood pressure to be in the normal range. The patient should follow up with a primary care provider for blood pressure management. Understanding of the discharge instructions verbalized by patient. ADDITIONAL INFORMATION Abdominal Pain,Uncertain Cause [Male] Based on your visit today, the exact cause of your abdominalpain is not clear. Your exam and tests do not indicate a dangerous cause at this time. However, the signs of a serious problem may take more time to appear. Although your evaluation was reassuring today, sometimes early in the course of many conditions, exam and lab tests can appear normal. Therefore, it is important for you to watch for any new symptoms or worsening of your condition. Causes It may not be obvious what caused your symptoms. Pay attention to things that do seem to make your symptoms worse or better and discuss this with your doctor when you follow up. Diagnosis The evaluation of abdominal pain in the emergency department may onlyrequire an exam by the doctor or it may include blood, urine or imaging studies, depending on many factors. Sometimes exams and tests can identify a cause but in many cases, a clear cause is not found. Further testing at follow up visits may help to suggest a clear diagnosis. Home Care Rest as much as possible until your next exam. Try to avoid any medications (unless otherwise directed by your doctor), foods, activities, or other factors that you may have contributed to your symptoms. Try to eat foods that you know that you have tolerated well in the past. Certain diets may be recommended for some conditions that cause abdominal pain. However, since the cause of your symptoms may not be clear, discuss your diet more with your primary care provider or specialist for further recommendations. Eating several small meals per day as opposed to 2 or 3 larger meals may help. Monitor closely for anything that may make your symptoms worse or better. Pay close attention to symptoms below that may indicate worsening of your condition. Follow Up and Precautions See your doctoras instructed or sooneror if your symptoms are not improving.In some cases, you may need more testing. When to Seek Medical Attention Contact your doctor or see medical attention ifany of the following occur: Pain is becoming worse You are unable to take your medications due to excessive vomiting Swelling of the abdomen Fever of 100.4F (38C) or higher, or as directed by your health care provider Blood in vomit or bowel movements (dark red or black color) Jaundice (yellow color of eyes and skin) New onset of weakness, dizziness or fainting New onset of chest, arm, back, neck or jaw pain Ondansetron Oral disintegrating tablet What is this medicine? ONDANSETRON (on PÉREZ se gamaliel) is used to treat nausea and vomiting caused by chemotherapy. It is also used to prevent or treat nausea and vomiting after surgery. How should I use this medicine? These tablets are made to dissolve in the mouth. Do not try to push the tablet through the foil backing. With dry hands, peel away the foil backing and gently remove the tablet. Place the tablet in the mouth and allow it to dissolve, then swallow. While you may take these tablets with water, it is not necessary to do so. Talk to your ruby on rails software developer regarding the use of this medicine in children. Special care may be needed. What side effects may I notice from receiving this medicine? Side effects that you should report to your doctor or health child care centre manager as soon as possible: allergic reactions like skin rash, itching or hives, swelling of the face, lips, or tongue breathing problems dizziness fast or irregular heartbeat feeling faint or lightheaded, falls fever and chills swelling of the hands and feet tightness in the chest Side effects that usually do not require medical attention (report to your doctor or health child care centre manager if they continue or are bothersome): constipation or diarrhea headache What may interact with this medicine? Do not take this medicine with any of the following medications: -apomorphine -cisapride -dofetilide -dronedarone -pimozide -thioridazine -ziprasidone This medicine may also interact with the following medications: -carbamazepine -phenytoin -rifampicin -tramadol -other medicines that prolong the QT interval (cause an abnormal heart rhythm) What if I miss a dose? If you miss a dose, take it as soon as you can. If it is almost time for your next dose, take only that dose. Do not take double or extra doses. Where should I keep my medicine? Keep out of the reach of children. Store between 2 and 30 degrees C (36 and 86 degrees F). Throw away any unused medicine after the expiration date. What should I tell my health care provider before I take this medicine? They need to know if you have any of these conditions: heart disease history of irregular heartbeat liver disease low levels of magnesium or potassium in the blood an unusual or allergic reaction to ondansetron, granisetron, other medicines, foods, dyes, or preservatives or trying to get breast-feeding What should I watch for while using this medicine? Check with your doctor or health child care centre manager as soon as you can if you have any sign of an allergic reaction. Famotidine Oral tablet What is this medicine? FAMOTIDINE (fa MARCIAL becker) is a type of antihistamine that blocks the release of stomach acid. It is used to treat stomach or intestinal ulcers. It can also relieve heartburn from acid reflux. How should I use this medicine? Take this medicine by mouth with a glass of water. Follow the directions on the prescription label. If you only take this medicine once a day, take it at bedtime. Take your doses at regular intervals. Do not take your medicine more often than directed. Talk to your ruby on rails software developer regarding the use of this medicine in children. Special care may be needed. What side effects may I notice from receiving this medicine? Side effects that you should report to your doctor or health child care centre manager as soon as possible: agitation, nervousness confusion hallucinations skin rash, itching Side effects that usually do not require medical attention (report to your doctor or health child care centre manager if they continue or are bothersome): constipation diarrhea dizziness headache What may interact with this medicine? delavirdine itraconazole ketoconazole What if I miss a dose? If you miss a dose, take it as soon as you can. If it is almost time for your next dose, take only that dose. Do not take double or extra doses. Where should I keep my medicine? Keep out of the reach of children. Store at room temperature between 15 and 30 degrees C (59 and 86 degrees F). Do not freeze. Throw away any unused medicine after the expiration date. What should I tell my health care provider before I take this medicine? They need to know if you have any of these conditions: kidney or liver disease trouble swallowing an unusual or allergic reaction to famotidine, other medicines, foods, dyes, or preservatives or trying to get breast-feeding What should I watch for while using this medicine? Tell your doctor or health child care centre manager if your condition does not start to get better or if it gets worse. Finish the full course of tablets prescribed, even if you feel better. Do not take with aspirin, ibuprofen or other antiinflammatory medicines. These can make your condition worse. Do not smoke cigarettes or drink alcohol. These cause irritation in your stomach and can increase the time it will take for ulcers to heal. If you get black, tarry stools or vomit up what looks like coffee grounds, call your doctor or health child care centre manager at once. You may have a bleeding ulcer. You have been given the following additional information: Abdominal Pain, Unknown Cause, (Male) Ondansetron Oral disintegrating tablet Famotidine Oral tablet (Electronically signed by Antony Terry Dr. 08/23/2016 19:07)
--- NOTE | 2016-08-23 19:07 | ED MAR SUMMARY ---
..... Medication Administration [facility] [address] [place] [address] Patient: NADIYA ECHEVERRIA Visit ID: [id number] 26y, M Weight: 68.0 kg Height/Length: 64 in BMI: 25.8 ALLERGIES: No Known Drug Allergy Given 08:57 08/20/2016 Jairon Juarez R.N. Medication Administered: ONDANSETRON [IVP] (ONDANSETRON HCL), Dose: 4 mg IVP, Site: #1 right AC. Medication Ordered: Ondansetron IV 4 mg (NOW). Start 08:57 08/20/2016 Jairon Juarez R.N., Stop 10:16 08/20/2016 Jairon Juarez R.N. Medication Administered: IV NS (SALINE), Dose: IV Fluids, Bolus: 1000 mL over 1 hour(s), Dispensed: 1000 mL bag, Site: #1 right AC. Medication Ordered: IV NS with Normal Saline 1 Liter: initial bolus none -, then 1000 mL/hr for X1 (NOW); Routine. Given 09:25 08/20/2016 Jairon Juarez R.N. Medication Administered: MORPHINE [IVP], Dose: 4 mg IVP, Site: #1 right AC. Medication Ordered: Morphine IV 4 mg (once now. may repeat in 15 minutes for total of 8 mg for pain > 5/10). Given 10:47 08/20/2016 Jairon Juarez R.N. Medication Administered: MORPHINE [IVP], Dose: 4 mg IVP, Site: #1 right AC. Medication Ordered: Morphine IV 4 mg (once now. may repeat in 15 minutes for total of 8 mg for pain > 5/10). Given 11:17 08/20/2016 Jairon Juarez R.N. Medication Administered: GI COCKTAIL WHITE [PO] (SIMETHICONE), Dose: 50 mL Oral Suspension PO. Medication Ordered: GI Cocktail WHITE PO 30 mL (NOW).
--- NOTE | 2016-08-23 19:07 | ED MED RECONCILIATION SUMMARY ---
Patient: NADIYA ECHEVERRIA Medication Reconciliation Report [facility] VisitID: [id number] [address] [place] [address] 26y, M Registration Date/Time: 08/20/2016 Weight: 68.0 kg Height/Length: 64 in. BMI: 25.8 ALLERGIES: No Known Drug Allergy The patient's Home Medications are listed below: NONE. The source(s) of the original Home Medication information: Not obtained. The following Medications were given to the patient in the Emergency Department: Ondansetron [IVP] IVP 4 mg, administered: 08/20/2016 8:57:00 AM IV NS IV Fluids bolus 1000 mL over 1 hour(s), administered: 08/20/2016 8:57:00 AM Morphine [IVP] IVP 4 mg, administered: 08/20/2016 9:25:00 AM Morphine [IVP] IVP 4 mg, administered: 08/20/2016 10:47:00 AM GI COCKTAIL WHITE [PO] PO 50 mL, administered: 08/20/2016 11:17:00 AM The following Medications were prescribed to the patient: Zofran (orally disintegrating tablets) 4 mg: take 1 orally every 8 hours as needed for nausea and vomiting. Dispense ten (10). No refill. Substitution is permissible. -- Antony Terry Dr. Pepcid 20 mg: take 1 orally every 12 hours for 10 days as needed for indigestion, upset stomach or heartburn. Dispense twenty (20). No refills. Substitution is permissible. -- Antony Terry Dr.
--- NOTE | 2016-08-23 19:07 | ED MED RECONCILIATION SUMMARY ---
Patient: NADIYA ECHEVERRIA Medication Reconciliation Report [facility] VisitID: [id number] [address] [place] [address] 26y, M Registration Date/Time: 08/20/2016 Weight: 68.0 kg Height/Length: 64 in. BMI: 25.8 ALLERGIES: No Known Drug Allergy The patient's Home Medications are listed below: NONE. The source(s) of the original Home Medication information: Not obtained. The following Medications were given to the patient in the Emergency Department: Ondansetron [IVP] IVP 4 mg, administered: 08/20/2016 8:57:00 AM IV NS IV Fluids bolus 1000 mL over 1 hour(s), administered: 08/20/2016 8:57:00 AM Morphine [IVP] IVP 4 mg, administered: 08/20/2016 9:25:00 AM Morphine [IVP] IVP 4 mg, administered: 08/20/2016 10:47:00 AM GI COCKTAIL WHITE [PO] PO 50 mL, administered: 08/20/2016 11:17:00 AM The following Medications were prescribed to the patient: Zofran (orally disintegrating tablets) 4 mg: take 1 orally every 8 hours as needed for nausea and vomiting. Dispense ten (10). No refill. Substitution is permissible. -- Antony Terry Dr. Pepcid 20 mg: take 1 orally every 12 hours for 10 days as needed for indigestion, upset stomach or heartburn. Dispense twenty (20). No refills. Substitution is permissible. -- Antony Terry Dr.
--- NOTE | 2016-08-23 19:07 | ED MAR SUMMARY ---
..... Medication Administration Record [facility] [address] [place] [address] Patient: NADIYA ECHEVERRIA Visit ID: [id number] 26y, M Weight: 68.0 kg Height/Length: 64 in BMI: 25.8 ALLERGIES: No Known Drug Allergy Given 08:57 08/20/2016 Jairon Juarez R.N. Medication Administered: ONDANSETRON [IVP] (ONDANSETRON HCL), Dose: 4 mg IVP, Site: #1 right AC. Medication Ordered: Ondansetron IV 4 mg (NOW). Start 08:57 08/20/2016 Jairon Juarez R.N., Stop 10:16 08/20/2016 Jairon Juarez R.N. Medication Administered: IV NS (SALINE), Dose: IV Fluids, Bolus: 1000 mL over 1 hour(s), Dispensed: 1000 mL bag, Site: #1 right AC. Medication Ordered: IV NS with Normal Saline 1 Liter: initial bolus none -, then 1000 mL/hr for X1 (NOW); Routine. Given 09:25 08/20/2016 Jairon Juarez R.N. Medication Administered: MORPHINE [IVP], Dose: 4 mg IVP, Site: #1 right AC. Medication Ordered: Morphine IV 4 mg (once now. may repeat in 15 minutes for total of 8 mg for pain > 5/10). Given 10:47 08/20/2016 Jairon Juarez R.N. Medication Administered: MORPHINE [IVP], Dose: 4 mg IVP, Site: #1 right AC. Medication Ordered: Morphine IV 4 mg (once now. may repeat in 15 minutes for total of 8 mg for pain > 5/10). Given 11:17 08/20/2016 Jairon Juarez R.N. Medication Administered: GI COCKTAIL WHITE [PO] (SIMETHICONE), Dose: 50 mL Oral Suspension PO. Medication Ordered: GI Cocktail WHITE PO 30 mL (NOW).
== END 2016-08-20 11:47 | disposition home or self-care (01) ==
LOC: ED SRH 08:26
DX: R10.31 Right lower quadrant pain (principal); R11.2 Nausea with vomiting, unspecified; F17.210 Nicotine dependence, cigarettes, uncomplicated
CPT/HCPCS: 90004; 90100; 92235; 92760; 92761; 92762; 92763; 92764; 92765; 92766; 92767; 95059